=== PATIENT | male | born 1960 | race Caucasian/White ===

== ENCOUNTER 2021-06-26 13:39 | Emergency (ER) | payer OTHER, SELFPAY ==
[2021-06-26 13:44] VITALS: BP 134/64; PULSE 68; RESP 16; TEMP 36.6; O2SAT 98
--- NOTE | 2021-06-26 14:09 | ED.MALEGU ---
HPI - Male Genitourinary General Chief complaint: Urogenital-Male Stated complaint: BLOOD IN URINE Source: patient and RN notes reviewed Mode of arrival: ambulatory Limitations: no limitations History of Present Illness HPI Narrative: Patient presents today complaining of gross hematuria x3 since 3:00 this morning with dysuria. Denies any additional symptoms to include testicular pain, penile pain, abdominal or back pain, fever. He is unsure if he is having any urinary frequency or if this is related to his anxiety. He has not tried any [id number] treatment prior to arrival. No recent antibiotic use. MD Complaint: dysuria and other (Hematuria) Related Data Home Medications Medication Instructions Recorded Confirmed atorvastatin 06/26/21 clonazepam 06/26/21 duloxetine mg PO 06/26/21 ergocalciferol (vitamin D2) 06/26/21 gabapentin 06/26/21 meloxicam 06/26/21 metoprolol succinate PO 06/26/21 tadalafil mg 06/26/21 tamsulosin mg PO 06/26/21 Allergies Allergy/AdvReac Type Severity Reaction Status Date / Time No Known Allergies Allergy Unverified 07/08/14 17:02 Review of Systems Review of Systems: CONSTITUTIONAL: Denies body aches, fever, chills, or sweats. EYES: Denies visual changes, redness, or discharge. ENT: Denies rhinorrhea, congestion, sore throat, or otalgia. CARDIOVASCULAR: Denies chest pain, palpitations, or edema. RESPIRATORY: Denies cough or dyspnea. GASTROINTESTINAL: Denies abdominal pain, nausea, vomiting, or diarrhea. GENITOURINARY: + dysuria and hematuria. SKIN: Denies rash, itching, or wounds. MUSCULOSKELETAL: Denies back pain, joint pain, or myalgia. NEUROLOGIC: Denies headache, numbness, tingling, or weakness. PSYCH: Denies depression or anxiety. [facility] Past Medical History Medical History (Updated 06/26/21 @ 14:12 by Ghada Walker, SLEEVE IRONER, ) Anxiety Borderline diabetes High cholesterol Peripheral neuropathy Comments At time of signature, I have reviewed and agree with nursing past medical, surgical, social and family history unless otherwise noted. Please see nursing chart for further information. There is no relevant family history pertinent to the presenting complaint Exam Narrative: GENERAL: Well-appearing, well-nourished, and in no acute distress. HEAD: Normocephalic, atraumatic. EYES: EOMI. No redness or drainage. Conjunctivae normal. ENT: Mucous membranes pink and moist. NECK: Normal AROM. CHEST: No respiratory distress. Clear to auscultation. HEART: Regular rate and rhythm. No murmur appreciated. Normal peripheral pulses. ABDOMEN: Soft, nontender, nondistended, normal active bowel sounds.-CVAT EXTREMITIES: Normal range of motion. No edema. SKIN: Warm, dry, no rash. Capillary refill normal. Normal skin turgor. NEURO: No focal deficits. Alert and oriented x3. Gait steady. PSYCH: Normal affect. No signs of depression or anxiety. Course Course Level of Care: Express Care Visit Vital Signs Vital signs: Vital Signs Temperature 97.8 F 06/26/21 13:44 Pulse Rate 68 06/26/21 13:44 Respiratory Rate 16 06/26/21 13:44 Blood Pressure 134/64 06/26/21 13:44 Pulse Oximetry 98 06/26/21 13:44 Temperature 97.8 F 06/26/21 13:44 Pulse Rate 68 06/26/21 13:44 Respiratory Rate 16 06/26/21 13:44 Blood Pressure 134/64 06/26/21 13:44 Pulse Oximetry 98 06/26/21 13:44 Reviewed. Pt has been instructed to follow up with his PCP regarding his elevated blood pressure today. MDM - Male Genitourinary Differential Diagnosis Differential diagnosis: Likely urinary tract infection, urethritis and other (Pyelonephritis) Lab Data Attestation: I reviewed the patient's lab results. Labs: Urine Glucose Negative Reference Range: Negative Urine Bilirubin Negative Reference Range: Negative Urine Ketone
== END 2021-06-26 14:18 | disposition home or self-care (01) ==
PROVIDERS: Emergency Provider Nurse Practitioner
DX: N30.01 Acute cystitis with hematuria (principal); E78.00 Pure hypercholesterolemia, unspecified; G62.9 Polyneuropathy, unspecified
CPT/HCPCS: 81003; 87086; 99203; G0463

== ENCOUNTER 2021-06-29 10:00 | Outpatient (RCR) | payer OTHER, SELFPAY ==
--- NOTE | 2021-06-01 11:10 | PTOPEVAL ---
PHYSICAL THERAPY EVALUATION AND PLAN OF CARE 06-01-21 Thank you for referring Hemant Bellamy to [facility].? He is scheduled to be seen for therapy? 2 x/week for 4 weeks. Please review, sign, date and return this plan of care KARISHMA. I agree with and certify that the following plan of care is medically necessary. Referring Physician Date Attending Provider: Dr. Kiran Document 06/01/21 10:00 ALIRIO (Rec: 06/01/21 11:10 ALIRIO [id number]) Past Medical History Source of Past Medical History Patient Neurological History Hx Other Neurological Disorders Yes: neuropathy B feet-saw neurologist since 2017 Cardiovascular History Hx Hypertension Yes: meds Respiratory History Hx Asthma Yes Hx COVID-19 Yes: may have had it, have been vaccinated Hx Sleep Apnea Yes: CPAP Gastrointestinal History Hx Gastrointestinal Disorders No Significant History Genitourinary History Hx Genitourinary Disorders No Significant History Musculoskeletal History Hx Arthritis Yes: OA- take meloxicam; back, neck, feet Hx Back Pain Yes: chronic back pain- injections, radiofrequency ablation, Endocrine History Hx Diabetes Yes: pre diabetic Evaluation Information Problem Diagnosis B neuropathy feet, instability , decreased strength foot and ankle Onset March 2021 Subjective Information told him to put diabetic Query Text:As Reported By Patient/ cream on feet; taking Family gabapentin and go for therapy; went to due to more pain in toes and problems with walking and turning; Diagnostic Tests X-Rays For This Problem No MRI For This Problem No Other Tests For This Problem No Previous Treatments Previous Treatments For This Problem no previous PT for feet/ankles Prior Level of Function Activity Level (Last 3 Months) Occupation retired Activity of Daily Living Ability Independent Indoor/Home Mobility Independent Community Mobility Independent Stairs Ability Independent Functional Cognition (Planning, Shopping Independent , Taking Medications) Cooking Yes Cleaning Yes Laundry Yes Shopping Yes Driving Yes Comments Additional Prior Level of Function 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
--- NOTE | 2021-06-21 08:35 | PCPTNOTE ---
Patient called & cancelled scheduled appointment this date due to granddaughter being sick, unable to find another sitter.
--- NOTE | 2021-06-29 10:38 | PTOPEVAL ---
PHYSICAL THERAPY DISCHARGE 06-29-21 Refer to the clinical summary for his status today, compared to the initial evaluation. The goals were achieved, therefore, he will be discharged from PT at this time. Thank you for referring Hemant Cortez to [facility].? Please review, sign, date and return this Discharge Report KARISHMA. I agree with and certify that the following plan of care is medically necessary. Referring Physician Date Attending Provider: Dr. Kiran Subjective Information Hemant reports: since starting Query Text:As Reported By Patient/ therapy feels more stability Family with walking; is doing his exercises at home, has not got any new shoes yet; Pain Assessment Pain Scale Pain Scale Used Numeric (1 - 10) Self Report Pain Assessment Bilateral Foot/Feet Reported Pain Level 3 Pain Frequency Chronic,Continuous Lowest Pain Intensity 3 Greatest Pain Intensity 4 Gross Lower Extremity Range of Motion in sitting: R and L ankle ROM, Comments reports pain and hurts with both ankles: DF, PF, inversion and eversion motions L more pain than R: dull and achey pain with motions Gross Lower Extremity Strength sitting: R and L ankle circles 20 reps with good control of the motion; toe flexion and extension through full ROM heel on ground, 3# wt on forefoot: ankle inversion and eversion: R x 20/ L x 20 reps each single leg standing R 46 /L 26 sec education: reviewed HEP, pt reports performing 15 reps, instruct to increase reps as tolerated and increase walking for fitness; discussed foot wear--supportive heel, arch support and enough space for his toes; stated he was going to purchase a new pair of shoes; currently wearing slip on, memory foam type shoes; pt voiced understanding that he may always have some pain but realizes that with exercises and keeping moving, he is better
== END 2021-07-02 12:18 | disposition home or self-care (01) ==
LOC: ANHPT 10:00
DX: M79.671 Pain in right foot (principal); M79.672 Pain in left foot
CPT/HCPCS: 97110; 97112; 97162

== ENCOUNTER 2025-02-22 09:53 | Outpatient (CLI) | payer MEDICARE, SELFPAY ==
--- OUTSIDE RECORDS SUMMARY | 2025-02-22 10:42 | XMS_ITS | Encounter Summary ---
Author Organization [facility] Address [address] [place] [address] Care Team Providers Care Lead Based Paint Technician Name Role Phone Dina Mcclendon MD Primary Care Provider [phone] Reason for Visit * Reason Onset Date Comments MEDICATION REFILL 10/14/2023 Encounter Details Date Type Department Care Team (Late st Contact Info) Description 10/14/2023 Refill [facility] - Neurology [address] [place] [address], [facility] [place] [address] Osmel Villareal MD [address] [place] [phone] MEDICATION REFILL Social History Tobacco Use Types Packs/Day Years Used Date Smoking Tobacco: Former Cigarettes 1 1981 Smokeless Tobacco: Former Chew Quit: 1977 Comments:cigarettes regularl y for 2 years then now and then thru college Alcohol Use Standard Drinks/Week Comments Yes 0 (1 standard drink = 0.6 oz pur e alcohol) 1-2 every 6 months AUDIT-C Answer Date Recorded Q1: How often do you have a drink containing alc ohol? Monthly or less 03/02/2020 Q2: How many drinks containi ng alcohol do you have on a typical day when you are drinking? 1 or 2 03/02/2020 Frequency of Binge Drinking Not on file 02/21 Overall Financial Resource Strain (CARDIA) Answe r Date Recorded How hard is it for you to pa y for the very basics like food, housing, medical care, and heating? Not hard at all 03/02/2020 Hunger Vital Sign Answer Date Recorded Within the past 12 months, y ou worried that your food would run out before you got the money to buy more. Never true 03/02/20 20 Within the past 12 months, t he food you bought just didn't last and you didn't have money to get more. Never true 03/02/2020 PRAPARE - Transportation Answer Date Re corded In the past 12 months, has l ack of transportation kept you from medical appointments or from getting medications? No 02/21 In the past 12 months, has l ack of transportation kept you from meetings, work, or from getting things needed for daily living? No 03/02/2020 Education Answer Date Recorded What is the highest level of school you have completed or the highest degree you have received? 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 Gender Identity Not on file Sexual Orientation Not on file Occupation Industry Job Start Date Job End Date former [employer] Not on jerome e Not on file Not on file documented as of this encounter Miscellaneous Notes * Telephone Encounter - Arabella Willard - 10/14/2023 2:30 PM CDT Refill Request Hemant Cortez KAYLEEN: JAN due: NOV scheduled: 11/25/2023 LRF: Qty Disp: 150 # of refills: 5 Allergies: No Known Allergies Pended Medication Order: Requested Prescriptions Pending Prescriptions Disp Refills gabapentin (Neurontin) 600 MG tablet 150 tablet 5 Sig: Take 1 (one) tablet by mouth 5 times daily while awake documented in this encounter Plan of Treatment Upcoming Encounters Date Type Department Care Team (Late st Contact Info) Description 11/17/2025 2:00 PM CDT Office Visit [facility] - Sleep Services [address] [phone] Omid Mart MD [address] [facility] [address] [place] [address] documented as of this encounter Visit Diagnoses Diagnosis Small fiber neuropathy Unspecified hereditary and idiopathic peripheral neuropathy documented in this encounter Care Teams Lead Based Paint Technician Relationship Specialty Start Date End Date Dina Mcclendon MD [address] [facility] [address] [place] [address] PCP - General 01/06/20 documented as of this encounter
--- OUTSIDE RECORDS SUMMARY | 2025-02-22 10:42 | XMS_ITS | Encounter Summary ---
Author Organization [facility] Address [address] [facility] [place] [address] Care Team Providers Care Software Tools Developer Name Role Phone Dina Mcclendon MD Primary Care Provider [phone] Reason for Visit * Reason Onset Date Comments Med Question 06/28/2024 Encounter Details Date Type Department Care Team (Late st Contact Info) Description 06/28/2024 Telephone [facility] - Centralized Scheduling [address] [place] [phone] Osmel Villareal MD [facility] [place] [phone] Med Question Social History Tobacco Use Types Packs/Day Years [...] Master's degree (e.g., MA, MS, Mercedes, MEd, SOFTWARE ASSET MANAGEMENT ANALYST, [employer]) 03/02/2020 Sex and Gender Information Value Date Recorded Sex Assigned at Not on file Legal Sex Male 5:52 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 Villareal regarding memory loss. documented in this encounter Plan of Treatment Upcoming Encounters Date Type Department Care Team (Late st Contact Info) Description 11/17/2025 2:00 PM CDT Office Visit [facility] - [facility] Services [address] [facility] [address] [place] [address] Omid Mart MD [address] [facility] [address] [place] [phone] documented as of this encounter Visit Diagnoses Not on filedocumented in this encounter Care Teams Software Tools Developer Relationship Specialty Start Date End Date Dina Mcclendon MD [address] [place] [address] PCP - General 01/06/20 documented as of this encounter
--- OUTSIDE RECORDS SUMMARY | 2025-02-22 10:42 | XMS_ITS | Clinical Summary ---
Author Organization [facility] Address [address] [place] [address] Care Team Providers Care Speeder Operator Name Role Phone Dina Mcclendon MD Primary Care Provider [phone] Source Comments [facility],non-owned Affiliates and Associated Physician Practices is amultiple site organization consisting of ambulatory clinics and hospital sitesin [place], [place], [place] and [place]. This disclosure is being madepursuant to the Care Everywhere program and may not contain all information available regarding this patient. Last updated 17.[facility] Allergies No known active allergies Medications * This document contains information received from the source organization and may not represent a complete record from that organization. * Be aware that medications may not be up to date on this document. Alwaysverify current medications with the patient. metoprolol succinate XL 24hr (TOPROL XL) 100 MG tabletIndication s:Acute pharyngitis, unspecified etiology Take 1 (one) tablet by mouth once daily Active Testosterone (AXIRON) 30 MG/ACT solution APPLY 2 PUMPS TOPICALLY DIRECTED EVERY DAY. 7 Active fluticasone propionate (Flonase) 50 MCG/ACT nasal sprayIndications :Allergic rhinitis, unspecified seasonality, unspecified trigger Correll 2 (two) sprays into each nostril once daily 48 g 3 1 Active cetirizine (ZYRTEC) 10 MG tabletIndication s:Allergic rhinitis, unspecified seasonality, unspecified trigger Take 1 (one) tablet by mouth once daily 90 tablet 3 1 Active meloxicam (MOBIC) 15 MG tablet Take 1 (one) tablet by mouth once daily 1 Active DULoxetine (CYMBALTA) 30 MG capsule 1 (one) capsule once daily 1 Active tamsulosin (Flomax) 0.4 MG capsule Take 1 (one) capsule by mouth 2 times daily Active albuterol HFA (Proventil; Ventolin; Proair) 108 (90 Base) MCG/ACT inhalerIndicatio ns:Uncomplicated asthma, unspecified asthma severity, unspecified whether persistent (HCC) Inhale 2 (two) puffs by mouth every 6 hours as needed 18 g 11 2 Active Additional Information Patient not taking.Reason: Patient adjusted, Reported on 11/30/2024 atorvastatin (Lipitor) 40 MG tablet 1 tablet(s), Oral, daily, 90 tablet(s), 0, 0, Route to Pharmacy Electronically, [id number], [id number], 180.34, cm, 05/09/2022 1400, Height, 111.2, kg, 05/09/2022 1400, Weight 3 Active clonazePAM (KlonoPIN) 0.5 MG tabletIndication s:RBD (REM behavioral disorder) Take 1 (one) tablet by mouth at bedtime 90 tablet 1 5 Active tadalafil (Cialis) 5 MG tablet Take 1 (one) tablet by mouth once daily 5 Active lidocaine (Xylocaine) 5 % ointmentIndicati ons:Idiopathic peripheral neuropathy Apply 1 tube to affected area once daily 60 g 4 5 Active gabapentin (Neurontin) 600 MG tabletIndication s:Small fiber neuropathy Take 1 (one) tablet by mouth 2 times daily Patient states he only been taking this medication 2x daily 180 tablet 4 5 Active Active Problems Problem Noted Date Diagnosed Date Abdominal pain 11/25/2023 Abnormal liver function tests 11/25/2023 Adult general medical examination 11/25/2023 Anxiety 11/25/2023 Benign localized prostatic h yperplasia with lower urinary tract symptoms (LUTS) 11/25/2023 Bilateral hearing loss 11/25/2023 Burning with urination 11/25/2023 Cobalamin deficiency 11/25/2023 Depressive disorder 11/25/2023 Dysphagia 11/25/2023 Erectile dysfunction 11/25/2023 Fatigue 11/25/2023 Hematuria 11/25/2023 Hyperlipidemia 11/25/2023 Hypogonadism in male 11/25/2023 Incomplete emptying of bladder 11/25/2023 Nausea 11/25/2023 Obesity 11/25/2023 Prediabetes 11/25/2023 Sinus tachycardia 11/25/2023 Somnolence 11/25/2023 Vitamin D deficiency 11/25/2023 Colon, diverticulosis 01/15/2023 Dyslipidemia 03/02/2020 Osteoarthritis 03/02/2020 Small fiber neuropathy 03/02/2020 Other osteoporosis without current pathological fracture 12/18/2018 Memory change 07/08/2018 REM behavioral disorder 03/24/2017 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 02/03/2014 Arthralgia of shoulder 07/22/2012 Low testosterone 03/19/2012 Lumbar radiculopathy 11/15/2010 Migraine headache 09/29/2010 Must strain to pass urine 08/05/2008 Hypertension Prostate disorder Chronic pain Encounters Date Type Department Care Team Description 01/24/2025 Refill [facility] - [facility]rology [address] [place] [phone] Charley Wellington MD MEDICATION REFILL 01/21/2025 Refill [facility] [address] [place] [phone] Amaya Keller MD MEDICATION REFILL 01/19/2025 Refill [facility] [address] [place] [phone] Osmel Villareal MD Refill Request 12/24/2024 Refill [facility] Neurology [address] [place] [address], [place] [address] Osmel Villareal MD Refill Request 11/30/2024 2:00 PM CDT Office Visit [facility] - Neurology [address] [place] [address], [facility] [place] [address] Osmel Villareal MD Idiopathic peripheral neuropathy (Primary Dx) 11/30/2024 Travel from Last 3 Months Immunizations Immunization Administration Dates Next Due Covid Pfizer primary Monoval ent 5-11yr 0.2ml 03/15/2021 Covid Pfizer primary monoval ent 12+ yr 0.3mL Purple cap 03/15/2021,05/25/2020 DTaP VACCINE IM (6wk-6yrs) 06/11/2024,02/03/2012 INFLUENZA VACCINE 03/15/2021,,12/11/2018,2016,12/22/2013 INFLUENZA VACCINE, CELL CULT URE, QUADR. (FLUCELVAX QUADRIVALENT; 6MO+) (CCIIV4) 12/30/2022,03/15/2021 INFLUENZA VACCINE, QUADR. (A FLURIA, FLUZONE QUADRIVALENT; 6MO+) (IIV4) 03/07/2017 INFLUENZA VACCINE, QUADR. (F LUZONE; FLULAVAL; FLUARIX; AFLURIA QUADRIVALENT; 6MO+), 0.5 ML (IIV4) 12/24/2021,2020,01/23/2018 PNEUMOCOCCAL PCV20 CONJ VAC IM 12/24/2021 PNEUMOCOCCAL PPSV23 07/06/2020 PNEUMOCOCCAL PPV VACCINE 08/04/2020 RSV AREXVY 60YR+ 0.5ML 12/30/2022 TDAP, HISTORIC VACCINE 06/11/2024 Zoster Hzv Vacc Recombinant Inj Im 05/28/2022, Family History Medical History Relation Name Comments Cancer - Lung Brother 1 Al Renal Disease Brother 1 Al Anxiety Disorder Brother 2 Gomez Diabetes - Type 2 Brother 2 Gomez Sleep Disorder - Other Brother 2 Gomez ELLYN o n CPAP Other Father mvp-repair Sleep Disorder - Other Father ELLYN o n CPAP CAD (Coronary Artery Disease) Mother Diabetes - Type 2 Mother Hypertension Mother Other - Pulmonary/Lung Mother Alex colon's granulomatosis (GPA) Renal Disease Mother Anxiety Disorder Sister Marcos Relation Name Status Comments Brother 1 Al Brother 2 Gomez Alive Father Alive Mother Sister Marcos Alive Social History Tobacco Use Types Packs/Day Years Used Date Smoking Tobacco: Former Cigarettes 1 7 1 975 - 1981 Smokeless Tobacco: Former Chew Quit: 1977 [...] Master's degree (e.g., MA, MS, Mercedes, MEd, IRON BENDER, [employer]) 03/02/2020 Sex and Gender Information Value Date Recorded Sex Assigned at Not on file Legal Sex Male 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 Gender Identity Not on file Sexual Orientation Not on file Occupation Industry Job Start Date Job End Date former [employer] Not on jerome e Not on file Not on file Last Filed Vital Signs Vital Sign Reading Time Taken Comments Blood Pressure 117/73 11/30/2024 1:54 PM CDT Pulse 65 11/30/2024 1:54 PM CDT Temperature 36 C (96.8 F) 11/30/2024 1:54 PM CDT Respiratory Rate 16 03/27/2023 11:14 AM WAREHOUSE STOCK CLERK Oxygen Saturation 95% 11/30/2024 1:54 PM CDT Inhaled Oxygen Concentration - - Weight 107.5 kg (237 lb) 11/30/2024 1:54 PM CDT Height 180.3 cm (5' 11) 11/30/2024 1:54 PM CDT Body Mass Index 33.05 11/30/2024 1:54 PM CDT Plan of Treatment Upcoming Encounters Date Type Department Care Team (Late st Contact Info) Description 11/17/2025 2:00 PM CDT [facility] [address] [facility] [address] [place] [address] Omid Mart MD [address] [place] [address] Health Maintenance Due Date Last Done Comments COLOGUARD (AGES 45-75) - COLON CA SCREENING 1960 COLON MONITORING 1960 COLONOSCOPY - COLON CA SCREENING 1960 CT COLONOGRAPHY - COLON CA SCREENING 1960 Colorectal Cancer Screening 1960 FIT - COLON CA SCREENING 1960 FLEX SIG - COLON CA SCREENING 1960 LIPID TESTING 1960 HIV SCREENING 01/24/1975 HEPATITIS C SCREENING 01/20/1978 SCREENING FOR DIABETES 12/25/2022 DEPRESSION SCREENING 03/24/2024 COVID-19 VACCINE ( season) 2024 05/28/2022, 03/15/2021, 03/15/2021, Additional history exists INFLUENZA VACCINE (#1) 2024 , 12/24/2021, 03/15/2021, Additional history exists AAA SCREENING 01/24/2025 DTAP/TDAP/TD VACCINES (4 - Td or Tdap) 06/11/2034 06/11/2024, 06/11/2024, 02/03/2012 BONE DENSITY TESTING Completed 01/13/2019, 04/18/19 17 PNEUMOCOCCAL VACCINE 50+ Completed 022, 08/04/2020, 07/06/2020 ZOSTER VACCINE Completed 05/28/2022, 12/24/2021 Respiratory Syncytial Virus (RSV) Vaccine Pt: or over 60 yrs Completed 12/30/2022 HEPATITIS B VACCINE Aged Out No longe r eligible based on patient's age to complete this topic HIB VACCINE Aged Out No longer eligi ble based on patient's age to complete this topic HPV VACCINE Aged Out No longer eligi ble based on patient's age to complete this topic MENINGOCOCCAL (Group B) VACCINE SHARED DECISION-MAKING Aged Out No longer eligible based on patient's age to complete this topic MENINGOCOCCAL GROUPS A/C/Y/W VACCINE Aged Out No longer eligible based on patient's age to complete this topic Insurance [employer] Care Teams Speeder Operator Relationship Specialty Start Date End Date Dina Mcclendon MD [address] [facility] [address] [place] [address] PCP - General 01/06/20
--- OUTSIDE RECORDS SUMMARY | 2025-02-22 10:42 | XMS_ITS | Encounter Summary ---
Author Organization [facility] Address [address] [place] [address] Care Team Providers Care Lacrosse Coach Name Role Phone Dina Mcclendon MD Primary Care Provider [phone] Reason for Visit * Reason Onset Date Comments Order 03/07/2020 Encounter Details Date Type Department Care Team (Late st Contact Info) Description 03/07/2020 Telephone [facility] [address] [place] [address] Marilu Downing, APNP-CAMERA ASSEMBLER [address] [phone] Order Social History Tobacco Use Types Packs/Day Years Used Date Smoking Tobacco: Former Cigarettes 1 1981 Smokeless Tobacco: Former Chew Quit: 1977 Comments:cigarettes regularl y for 2 years then now and then thru college Alcohol Use Standard Drinks/Week Comments Yes 0 (1 standard drink = 0.6 oz pur e alcohol) AUDIT-C Answer Date Recorded Q1: How often [...] Master's degree (e.g., MA, MS, Mercedes, MEd, BELT PRESS OPERATOR, JOSE FRANCISCO) 03/02/2020 Sex and Gender Information Value Date Recorded Sex Assigned at Not on file 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 RVISOR STENO POOL documented in this encounter Plan of Treatment Upcoming Encounters Date Type Department Care Team (Late st Contact Info) Description 11/17/2025 2:00 PM CDT Office Visit [facility] [address] [facility] [address] [place] [address] Omid Mart MD [address] [facility] [address] [place] [address] documented as of this encounter Visit Diagnoses Not on filedocumented in this encounter Care Teams Lacrosse Coach Relationship Specialty Start Date End Date Dina Mcclendon MD [address] [facility] [address] [place] [address] PCP - General 01/06/20 documented as of this encounter
--- OUTSIDE RECORDS SUMMARY | 2025-02-22 10:42 | XMS_ITS | Encounter Summary ---
Author Organization [facility] Address [address] [place] [address] Care Team Providers Care Lithopone Charger Name Role Phone Dina Mcclendon MD Primary Care Provider [phone] Reason for Visit * Reason Onset Date Comments MEDICATION REFILL 12/14/2021 Encounter Details Date Type Department Care Team (Late st Contact Info) Description 12/14/2021 Refill [facility] [address] [place] [address], [place] [address] Osmel Villareal MD [address] [place] [phone] MEDICATION REFILL Social History Tobacco Use Types Packs/Day Years Used Date Smoking Tobacco: Former Cigarettes 1 7 1981 Smokeless Tobacco: Former Chew Quit: 1977 [...] Master's degree (e.g., MA, MS, Mercedes, MEd, SHOE SALESMAN, JOSE FRANCISCO) 03/02/2020 Sex and Gender Information Value Date Recorded Sex Assigned at Not on file 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 Gender Identity Not on file Sexual Orientation Not on file Occupation Industry Job Start Date Job End Date former [employer] Not on jerome e Not on file Not on file documented as of this encounter Plan of Treatment Upcoming Encounters Date Type Department Care Team (Late st Contact Info) Description 11/17/2025 2:00 PM CDT Office Visit [facility] [address] [facility] [address] [place] [address] Omid Mart MD [address] [facility] [address] [place] [address] documented as of this encounter Visit Diagnoses Diagnosis Small fiber neuropathy Unspecified hereditary and idiopathic peripheral neuropathy documented in this encounter Care Teams Lithopone Charger Relationship Specialty Start Date End Date Dina Mcclendon MD [address] [facility] [address] [place] [address] PCP - General 01/06/20 documented as of this encounter
--- OUTSIDE RECORDS SUMMARY | 2025-02-22 10:42 | XMS_ITS | Clinical Summary ---
Author Organization [facility] Address [address] [place] [address] Phone Care Team Providers Care Turbo Generator Oiler Name Role Phone Dina Mcclendon MD Primary Care Provider [phone] Allergies Active Allergy Reactions Criticality Noted Date Comments Alendronic Acid Unknown 05/18/2020 Acid reflux Diclofenac-Misoprostol Other (See Comments) Low Acid reflux Medications tamsulosin (FLOMAX) 0.4 mg Oral capsule Take 0.4 mg by mouth 2 times daily. Active ACETAMINOPHEN WITH CODEINE (ACETAMINOPHEN-CO DEINE ORAL) Take by mouth 3 times daily. Active imipramine HCl (TOFRANIL) 25 mg Oral tablet Take 25 mg by mouth daily at bedtime. Active mirtazapine (REMERON) 45 mg Oral tablet Take 45 mg by mouth daily at bedtime. Active ZOLMitriptan (ZOMIG) 5 mg Oral tablet Take 5 mg by mouth every 2 hours as needed. may repeat in 2 hours; max dose 10mg in 24 hours Active LORazepam (ATIVAN) 1 mg Oral tablet Take 1 mg by mouth every 6 hours as needed. Active STRATTERA 60 mg capsule TK 1 C PO QD 1 7 Active HYDROcodone-aceta minophen (NORCO) 5-325 mg tablet TK ONE TO TWO TS PO TID PRN P. MAX OF 6 TS PER DAY. 0 7 Active metoprolol succinate (TOPROL XL) 100 mg Extended Release 24 hour tablet TK 1 T PO D 3 7 Active celecoxib (CeleBREX) 200 mg capsule TK 1 C PO BID 1 8 Active gabapentin (NEURONTIN) 600 mg tablet Take 600 mg by mouth. Active tadalafiL (CIALIS) 20 mg tablet Take 20 mg by mouth. Active ergocalciferol (Vitamin D2) 50,000 unit capsule Take by mouth every 7 days. Active clonazePAM (KlonoPIN) 0.5 mg Tablet Take 0.5 mg by mouth daily at bedtime. Active meloxicam (MOBIC) 15 mg tablet Take 15 mg by mouth daily. Active DULoxetine (CYMBALTA) 30 mg Capsule, Delayed Release(E.C.) Take 30 mg by mouth daily. Active atorvastatin (LIPITOR) 40 mg tablet Take 40 mg by mouth daily. 3 Active fluticasone propionate (FLONASE) 50 mcg/spray [place], Suspension nasal inhaler Administer 2 Sprays in each nostril daily. 1 Active cetirizine (ZyrTEC) 10 mg tablet Take 10 mg by mouth daily. 1 Active albuterol sulfate HFA 90 mcg/actuation aerosol inhaler Take 2 Puffs by inhalation every 6 hours as needed. 2 Active testosterone 30 mg/actuation (1.5 mL) Solution in Metered Pump w/AppIndications: Low testosterone APPLY 4 PUMPS TOPICALLY DAILY DIRECTED 180 mL 5 Active Active Problems Problem Noted Date Diagnosed Date Other osteoporosis without current pathological fracture 12/18/2018 Low testosterone 03/19/2012 Family History Medical History Relation Name Comments Heart Disease Father High Cholesterol Father Diabetes Mother Heart Disease Mother Relation Name Status Comments Father Mother Social History Tobacco Use Types Packs/Day Years Used Date Smoking Tobacco: Never Tobacco Cessation:Counseling Given: Not Answered Alcohol Use Standard Drinks/Week Comments Yes 1.7 (1 standard drink = 0.6 oz p ure alcohol) 1-2 beers a month Sex and Gender Information Value Date Recorded Sex Assigned at Not on file Legal Sex Male 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 Gender Identity Not on file Sexual Orientation Not on file Occupation Industry Job Start Date Job End Date Not on file Not on file Not on file Not on file Last Filed Vital Signs Vital Sign Reading Time Taken Comments Blood Pressure 132/80 07/21/2024 11:16 AM CDT Pulse 74 07/21/2024 11:16 AM CDT Temperature - - Respiratory Rate - - Oxygen Saturation 97% 07/21/2024 11:16 AM CDT Inhaled Oxygen Concentration - - Weight 109.3 kg (241 lb) 07/21/2024 11:16 AM CDT Height 180.3 cm (5' 11) 07/21/2024 11:16 AM CDT Body Mass Index 33.61 07/21/2024 11:16 AM CDT Plan of Treatment Health Maintenance Due Date Last Done Comments Pre-Diabetes and Diabetes Screening 1960 COLORECTAL SCREENING 01/24/2005 Colorectal Cancer Screening 01/24/2005 FIT-DNA Q 3 years 01/24/2005 FIT/FOBT Q 1 year 01/24/2005 Flex Sig/CT Colonography Q 5 years 01/24/2005 PNEUMOCOCCAL VACCINE 50+ YEA RS (2 of 2 - PCV) 07/06/2021 07/06/2020 DTAP/TDAP/TD VACCINES (2 - Tdap) 02/02/2022 02/03/20 12 ZOSTER VACCINE (2 of 2) 07/23/2022 05/28/2022 INFLUENZA VACCINE (#1) 2024 2020, 2017 COVID-19 Vaccine (4 - 2024-2 6 season) 2024 05/28/2022, 03/15/2021, 06/17/2020, Additional history exists RSV VACCINE (60+ or ) (1 - 1-dose 75+ series) 01/24/2035 Insurance [facility] RX [facility] [employer] Care Teams Turbo Generator Oiler Relationship Specialty Start Date End Date Dina Mcclendon MD [address] [facility] [address] [place] [address] PCP - General Internal Medicine 09/01/19
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
--- OUTSIDE RECORDS SUMMARY | 2025-02-22 10:42 | XMS_ITS | Encounter Summary ---
Author Organization [facility] Address [address] [place] [address] Care Team Providers Care Machine I Coremaker Name Role Phone Dina Mcclendon MD Primary Care Provider [phone] Reason for Visit * Reason Onset Date Comments Post call RFA 09/11/2022 Encounter Details Date Type Department Care Team (Late st Contact Info) Description 09/11/2022 Telephone [facility] [address] [address], [address] [place] [phone] Ricardo Bishop MD [address] [address] Post call RFA Social History Tobacco Use Types Packs/Day Years Used Date Smoking Tobacco: Never Smokeless Tobacco: Never Alcohol Use Standard Drinks/Week Comments No 0 (1 standard drink = 0.6 oz pur e alcohol) AUDIT-C Answer Date Recorded Q1: How often do you have a drink containing alc ohol? Monthly or less 10/09/2021 Average Number of Drinks Not on file 022 Q3: How often do you have si x or more drinks on one occasion? 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 Author CCM Chronic Pain Care Plan Chronic Care Management Yes Marcela Leo, DOMINIQUE Note: Problem: Chronic Pain Goals: 1. Minimize further functional decline 2. Maximize quality of life 3. Control pain Strategies: - Activity/exercise program recommendation - Conservative stepwise pain medicine strategy with multi-disciplinary approach - Recommend healthy lifestyle strategies and compensatory methods as needed Reduce the likelihood of falling Lifestyle Tara Masters Note: Below are four things you can [...] on stairs Contact your local community or senior center for information on exercise, fall prevention programs, or options for improving home safety. documented as of this encounter Visit Diagnoses Not on filedocumented in this encounter Care Teams Machine I Coremaker Relationship Specialty Start Date End Date Dina Mcclendon MD PCP - General Internal Medicine 06/20/20 documented as of this encounter
== END 2025-02-22 09:54 | disposition home or self-care (01) ==
LOC: ANHAUDIO 09:54
DX: H90.3 Sensorineural hearing loss, bilateral (principal)
CPT/HCPCS: 92557; 92567